=== PATIENT | female | born 1980 | race Caucasian/White ===

== ENCOUNTER → 2024-02-16 07:34 | Outpatient (CLI) | payer OTHER, SELFPAY ==
--- NOTE | 2024-02-16 07:43 | DI.MRI.S_ITS ---
PROCEDURE: MR FEMUR RT WO CON INDICATIONS: Strain of other specified muscles, fascia and tend TECHNIQUE: Noncontrast coronal and sagittal T1 spin echo and STIR; axial T1 spin echo and T2 fast spin echo with fat saturation through the right femur. COMPARISON: None. FINDINGS: Image quality: Excellent. Bones: The visualized bone marrow demonstrates normal signal on all sequences. The overlying cortex appears intact. No fractures lines or intra-osseous lesions. Soft tissues: There is low-grade tear at the myotendinous junction of the right adductor muscle in the proximal thigh, with small amount of hematoma/fluid and associated muscle edema. There is mild retraction of the torn muscle fiber. The right iliopsoas, hamstring, gluteal minimus and gluteus medius muscle and tendon are unremarkable. No knee effusion. Other findings: There is mild muscle edema of the left adductor muscle at the proximal thigh, presenting mild muscle strain as well. IMPRESSION: 1. Low-grade tear at the myotendinous junction of the right adductor muscle in the right proximal thigh. 2. Mild muscle strain of the left adductor muscle in the left proximal thigh. Dictated by: Barbara Watkins M.D. on 02/16/2024 at 10:02 Approved by: Barbara Watkins M.D. on 02/16/2024 at 10:11
== END ==
LOC: MRI 07:37
PROVIDERS: PCP Physician Assistant Medical; Referring Provider Physician Assistant Medical; Visit Provider Physician Assistant Medical
DX: S76.211A Strain of adductor muscle, fascia and tendon of right thigh, initial encounter (principal); S76.212A Strain of adductor muscle, fascia and tendon of left thigh, initial encounter; X58.XXXA Exposure to other specified factors, initial encounter
CPT/HCPCS: 73718